=== PATIENT | male | born 1960 | race African-American/Black ===

== ENCOUNTER 2016-09-15 23:03 | Emergency (ER) | payer OTHER ==
[2016-09-15 20:39] LABS: BASOPHILS 0.4 %; BASOPHILS ABSOLUTE 0.02 10/3/uL (0.0-0.16); EOSINOPHILS 4.5 %; EOSINOPHILS ABSOLUTE 0.23 10/3/uL (0.0-0.53); HEMATOCRIT 36.7 % (40.0-51.0); HEMOGLOBIN 12.8 g/dL (13.6-17.8); IMMATURE GRANULOCYTES 0.2 %; IMMATURE GRANULOCYTES ABSOLUTE 0.01 10/3/uL (0.0-0.11); MEAN CORPUS HGB CONC 34.9 g/dL (32.0-36.0); MEAN CORPUSCULAR HEMOGLOB 27.7 pg (26.0-34.0); MEAN CORPUSCULAR VOLUME 79.4 fL (80-100); MEAN PLATELET VOLUME 11.1 fL (9.2-13.0); MONOCYTES 7.2 %; MONOCYTES ABSOLUTE 0.37 10/3/uL (0.21-1.20); NEUTROPHILS 42.7 %; NEUTROPHILS ABSOLUTE 2.18 10/3/uL (2.02-8.40); PLATELET COUNT 293 10/3/uL (150-400); RBC DISTRIBUTION WIDTH 12.8 % (12.0-16.0); RED CELL COUNT 4.62 10/6/uL (4.7-6.1); WHITE BLOOD CELLS 5.1 10/3/uL (4.5-10.5)
[2016-09-15 20:40] LABS: MANUAL DIFF NO %
[2016-09-15 20:53] LABS: ALBUMIN 3.5 G/DL (3.5-5.0); BUN (BLOOD UREA NITROGEN) 14 MG/DL (6-23); CALCIUM, SERUM 8.8 MG/DL (8.5-10.4); CHLORIDE, SERUM 107 MMOL/L (96-112); CO2 (CARBON DIOXIDE) 28 MMOL/L (24-34); CREATININE 0.71 MG/DL (0.70-1.30); GFR AFRICAN AMERICAN 121 ML/MIN (>=60); GFR NON AFRICAN AMERICAN 104 ML/MIN (>=60); GLOBULIN 3.6 G/DL (2.5-4.1); POTASSIUM, SERUM 3.6 MMOL/L (3.5-5.3); SGOT(AST) 27 U/L (5-40); SGPT(ALT) 37 U/L (5-65); SODIUM, SERUM 143 MMOL/L (135-148); TOTAL BILIRUBIN 1.4 MG/DL (0-1.2); TOTAL PROTEIN 7.1 G/DL (6.0-8.5)
[2016-09-15 20:54] LABS: ALKALINE PHOSPHATASE 75 U/L (45-117); GLUCOSE, SERUM 86 MG/DL (60-99)
[~2016-09-15 23:03] MED LIST: BYSTOLIC10 MG PO; DIOVAN HCT320 MG/25 PO; GLUCOPHXR PO; LANTUS SC; LORTAB 5 PO; NORV10 PO; SPIRO25 PO; ZOCOR40 PO; [UNRECOGNIZED DRUG - REMARK]
== END 2016-09-15 23:30 | disposition home or self-care (01) ==
LOC: ER 23:03
PROVIDERS: Nurse Practitioner
DX: R60.0 Localized edema (principal); Z88.6 Allergy status to analgesic agent; Z88.8 Allergy status to other drugs, medicaments and biological substances; Z79.4 Long term (current) use of insulin
CPT/HCPCS: 80053; 85025; 93005; 93971; 99284